=== PATIENT | male | born 1995 | race Caucasian/White ===

== ENCOUNTER 2016-07-23 21:08 | Emergency (ER) | payer SELFPAY ==
[~2016-07-23] VITALS: Ht 180.3 cm; Wt 84.1 kg
[2016-07-23 21:15] VITALS: BP 138/79; PULSE 81; RESP 16; O2SAT 100
--- NOTE | 2016-07-23 22:50 | ED.REPORT ---
HPI-Rash / Abscess Date of Service Jul 23, 2016 ED Provider: Aquilino Beal MD A healthy 21 year old male presents to the ED with an abscess to his left buttock onset one week ago. The patient denies nausea, vomiting, diarrhea, or other symptoms. He attempted to chioma the abscess twice with a sterile blade, with pus drainage but no relief. He has also taken baths, applied hot compresses , and spread lidocaine cream to the affected area, with no relief. The patient denies IV drug use or a history of abscess. He is concerned that he may have been exposed to staphylococcus. Nursing Notes Stated Complaint: BOIL/LESION POSSIBLE STAPH Chief Complaint: Skin Rash/Abscess Nursing Notes Reviewed: Yes Allergies: Coded Allergies: No Known Allergies (Unverified , 07/23/16) General Time Seen by MD: 22:31 Chief Complaint Abscess Hx Obtained From: Patient Arrived By: Walk-in Onset Occurred: 1 week ago Symptom Duration: Since onset Location: : Buttock Quality: Painful Severity: Current: Mild Severity: Maximum: Mild Pertinent Negative: Pt denies other symptoms Pertinent Negative: Relieved by nothing Recent Healthcare: No recent doctor visit Similar Sx Previous: No Past Medical History Past Medical History None reported Past Surgical History None reported Smoking History Unknown if Ever Smoker Social History Drug Use: Denies drug use Other Social History: Good social support Ambulatory Status Independent Review of Systems Review of Systems Note: + Abscess to left buttock Constitutional: Denies: Fever Respiratory: Denies: Non-productive cough, Shortness of breath GI: Denies: Diarrhea, Nausea, Vomiting Complete sys rev & neg: except as marked. Physical Exam Initial Vital Signs Vital Signs (First) Date Time Temp Pulse Resp B/P Pulse Ox O2 Delivery O2 Flow Rate FiO2 07/23/16 21:15 36.6 81 16 138/79 100 Room Air Initial VS: Reviewed, Vital signs normal Head / Eyes: Atraumatic, Normocephalic ENT: Conjunctiva normal, No scleral icterus Neck: Supple, Full range of motion Neurologic: Alert, Oriented, Nonfocal Psychiatric: Mood/affect normal, Behavior normal, Normal thought content General/Constitutional: Awake, Alert, No acute distress Skin: Warm, Dry Abscess #1 Location/Condition: Positive: Buttock L... (10 cm) Procedures Incision & Drainage Abscess Time: 00:00 Procedure Performed by: ED physician Consent / Setup / Site Prep: Consent from patient, Time-out performed, Hand hygiene observed, Stand sterile technique, Sterile drapes applied Location of Abscess: Left buttock Skin Preparation Agent: Shurclens Local Anesthesia: Lidocaine w epi 1% (6cc) Incised Abscess with Scalpel: #11 Pus Drained: Small, Purulent discharge Irrigation: Yes Post-Procedure / Complications: Packing placed (Plain half inch), Culture obtained, Gram stain ordered, Dressing applied, Condition improved, Tolerated procedure well, Patient stable Re-Eval/Medical Decision Med Decision/Clinical Course 21-year-old male with a follicular abscess on his left buttock. Not drug use associated. I&D performed without difficulty. Placed on antibiotics. Recheck in 24 hours. Re-Evaluation/Progress #1: Time of Eval: 00:00 Patient Status: Condition improved Re-Evaluation/Progress Note: I&D performed. Re-Evaluation/Progress #2: Time of Eval: 00:30 Patient Status: Condition improved Re-Evaluation/Progress Note: Discussed with patient diagnosis and plan for discharge. Follow-up and return to the ER instructions given. Patient agrees with plan for care and all questions were addressed. Counseled Regarding: Diagnosis, Need for follow-up, When/why to return to ED Discharge & Departure Impression: Primary Impression: Abscess Disposition: Home Discharge Condition All VS Reviewed: Yes Condition: Improved Patient Instructions: Abscess (ED) Additional Instructions: Trimethoprim sulfamethoxazole DS 1 by mouth twice a day, #20 dispensed. Wound recheck in approximately 24 hours, return to the emergency room between the hours of 9 PM and 6 AM Saturday night and I will recheck it. Referrals: [facility] (PCP) [facility] [place] Att[facility] Portions of this note were transcribed by Breana Dhaliwal. I, Dr. Beal, personally performed the history, physical exam, and medical decision-making; I reviewed and confirmed the accuracy of the information in the transcribed note. Signed by: Markos Ramirez, 07/24/2016, 02:00 copies to: [facility] Aquilino Beal MD Jul 23, 2016 22:50 BREANA DHALIWAL Jul 23, 2016 23:19
[2016-07-24 00:38] VITALS: BP 108/62; PULSE 80; RESP 20; O2SAT 100
[2016-07-24 01:18] VITALS: BP 117/68; PULSE 74; O2SAT 96
[2016-07-24] MEDS ORDERED: _Trimethoprim-Sulfa 160/800 mg Tablet PO SCH (08:30)
== END 2016-07-24 01:24 | disposition home or self-care (01) ==
LOC: SED 21:08
DX: L02.31 Cutaneous abscess of buttock (principal)